=== PATIENT | male | born 1985 | race Caucasian/White ===

== ENCOUNTER 2016-12-25 14:59 | Emergency (ER) | payer SELFPAY ==
[~2016-12-25] VITALS: Ht 175.3 cm; Wt 88.5 kg
[2016-12-25 15:03] VITALS: BP 148/95
--- NOTE | 2016-12-25 15:10 | NUR ---
31/M BIB FAMILY C/O SEVERE LOWER BACK PAIN S/P LIFTING 70LBS BOX WITHOUT BENDING AT THE KNEES TODAY.AMBULATORY WITH A SLOW GUARDED GAIT. DENIES N/V/D; SKIN IS PINK/WARM/DRY; AAOX4 . LUNGS CLEAR BL; HR EVEN AND REGULAR; PT DENIES ANY FEVER, CP, SOB, OR COUGH AT THIS TIME; PATIENT STATES PAIN OF 0/10 AT THIS TIME; PATIENT POSITIONED FOR COMFORT; HOB ELEVATED; BEDRAILS UP X2; BED DOWN. ER MD MADE AWARE OF PT STATUS.
--- NOTE | 2016-12-25 15:21 | NUR ---
NICOLAS DOMINGUEZ EVALUATING PT AT BEDSIDE.
[2016-12-25] MEDS ORDERED: KETOROLAC 30 MG/ML VIAL IM ONE (15:35)
[2016-12-25] MEDS ORDERED: CYCLOBENZAPRINE 10 MG TAB PO ONE (15:35)
--- NOTE | 2016-12-25 15:52 | NUR ---
ADMINISTERED MEDS ORDER.
--- NOTE | 2016-12-25 16:00 | NUR ---
Patient appears to be resting comfortably in bed. Vital Signs within normal limits. Respirations even and unlabored.WILL CONTINUE TO MONITOR.
--- NOTE | 2016-12-25 16:21 | NUR ---
NICOLAS DOMINGUEZ REEVALUATING PT AT BEDSIDE. Addendum: 12/25/16 at 1623 by [email or web address] PT TST BACK PAIN 11/11 AT THIS TIME.
--- NOTE | 2016-12-25 16:40 | NUR ---
pt tsts pain 08/11
[2016-12-25 16:42] VITALS: BP 149/90
--- NOTE | 2016-12-25 16:42 | NUR ---
Patient discharged with v/s stable. Written and verbal after care instructions given and explained. Patient alert, oriented and verbalized understanding of instructions. Ambulatory with steady gait. All questions addressed prior to discharge. ID band removed. Patient advised to follow up with PMD. Rx of FLEXERIL & MOTRIN given. Patient educated on indication of medication including possible reaction and side effects. Opportunity to ask questions provided and answered.
== END 2016-12-25 16:42 | disposition home or self-care (01) ==
LOC: MED 14:59
DX: M54.5 Low back pain (principal); F10.99 Alcohol use, unspecified with unspecified alcohol-induced disorder
CPT/HCPCS: 96372; 99283; J1885

== ENCOUNTER 2018-08-05 16:02 | Inpatient (IN) | payer MEDICAID ==
[~2018-08-05] VITALS: Ht 175.3 cm; Wt 90.3 kg
[2018-08-05 16:14] VITALS: BP 128/100
[2018-08-05] MEDS ORDERED: NACL 0.9% 1,000 ML IV SCH (17:31)
[2018-08-05] MEDS ORDERED: NACL 0.9% 1,000 ML IV ONE (17:31)
--- NOTE | 2018-08-05 17:34 | NUR ---
PATIENT PRESENTS TO ED WITH c/o sharp burning epigastric pain x this am with severe nausea---x1 episode of loose stool denies emesis thus far--- . DENIES N/V/D; SKIN IS PINK/WARM/DRY; AAOX4 WITH EVEN AND STEADY GAIT; LUNGS CLEAR BL; HR EVEN AND REGULAR; PT DENIES ANY FEVER, CP, SOB, OR COUGH AT THIS TIME; PATIENT STATES PAIN OF 8/10 AT THIS TIME; VSS; PATIENT POSITIONED FOR COMFORT; HOB ELEVATED; BEDRAILS UP X2; BED DOWN. ER MD MADE AWARE OF PT STATUS.
[2018-08-05] MEDS ORDERED: KETOROLAC 30 MG/ML VIAL IVP ONE (17:35)
[2018-08-05] MEDS ORDERED: PROMETHAZINE 25 MG/ML VIAL IM ONE (17:35)
[2018-08-05] MEDS ORDERED: diphenhydrAMINE 50 MG/ML VIAL IVP ONE (17:35)
[2018-08-05] MEDS ORDERED: HALOPERIDOL IM 5 MG/ML VIAL IM ONE (17:35)
--- NOTE | 2018-08-05 18:12 | NUR ---
PT TO CT VIA [facility]
[2018-08-05 18:14] LABS: BASOPHILS # (AUTO) 0.1 K/uL (0.00-0.22); BASOPHILS % (AUTO) 0.4 % (0.0-2.0); HEMATOCRIT 44.3 % (36-52); HEMOGLOBIN 15.5 g/dL (12.0-18.0); LYMPHOCYTES # (AUTO) 0.8 K/uL (2.0-11.5); LYMPHOCYTES % (AUTO) 4.9 % (20.5-51.1); MEAN CORPUSCULAR HEMOGLOBIN 32 pg (27-31); MEAN CORPUSCULAR HGB CONC 35 g/dL (33-37); MONOCYTES # (AUTO) 0.5 K/uL (0.8-1.0); MONOCYTES % (AUTO) 3.2 % (1.7-9.3); NEUTROPHILS # (AUTO) 14.5 K/uL (1.8-7.7); NEUTROPHILS % (AUTO) 91.5 % (42.2-75.2); PLATELET COUNT (AUTO) 295 K/uL (140-450); RED BLOOD CELL COUNT(AUTO) 4.81 MIL/uL (4.20-6.10); RED CELL DISTRIBUTION WIDTH 12.7 % (11.6-13.7); WHITE BLOOD COUNT (AUTO) 15.9 K/uL (4.8-10.8)
--- NOTE | 2018-08-05 18:14 | NUR ---
MEDICATED FOR EPIGASTRIC PAIN AND SEVERE NAUSEA----PT ADMITS TO HAS BEEN DRINKING BEERS >20 LAST NIGHT--- WILL CONTINUE TO OBSERVE FOR PAIN CONTROL
[2018-08-05 18:29] LABS: ANION GAP 16.4 (8-16); CARBON DIOXIDE 23.3 mmol/L (21-32); CHLORIDE 98 mmol/L (98-107); CREATININE 0.8 mg/dL (0.7-1.3); GFR ARICAN-AMERICAN 145 mL/min (>90); GLUCOSE 119 mg/dL (74-106); POTASSIUM 3.7 mmol/L (3.5-5.1); SODIUM SERUM 134 mmol/L (136-145); UREA NITROGEN, BLOOD 7 mg/dL (7-18)
--- NOTE | 2018-08-05 18:30 | NUR ---
RETURNED FROM CT VIA [facility]
[2018-08-05 18:35] LABS: ALBUMIN 4.3 g/dL (3.4-5.0); AMYLASE 34 U/L (25-115); ASPARTATE AMINOTRANSFERASE 87 U/L (15-37); LIPASE 81 U/L (73-393); TOTAL BILIRUBIN 1.3 mg/dL (0.0-1.0)
[2018-08-05] MEDS ORDERED: PIPERACILLIN/TAZOBACTAM 3.375 GM in DEXTROSE 5% 50 ML IV ONE (18:45)
[2018-08-05] MEDS ORDERED: metroNIDAZOLE 500 MG/NS PREMIX 100 ML IV ONE (18:45)
[2018-08-05 19:04] LABS: APPEARANCE,URINE CLEAR (CLEAR); BILIRUBIN,URINE NEGATIVE (NEGATIVE); BLOOD, URINE NEGATIVE (NEGATIVE); COLOR,URINE YELLOW (YELLOW); LEUKOCYTE ESTERASE ,URINE NEGATIVE (NEGATIVE); NITRITE, URINE NEGATIVE (NEGATIVE); PH,URINE >=9.0 (5.0-9.0); UGLUCOSE NEGATIVE (NEGATIVE)
--- NOTE | 2018-08-05 19:05 | NUR ---
REPORT RECEIVED FROM SANDOR, RN
[2018-08-05 19:12] LABS: BARBITURATE, URINE NEG. ng/ml (NEG <=200); BENZODIAZEPINE, URINE NEG. ng/mL (NEG <=200); CANNABINOID, URINE POS. ng/mL (NEG <=50); COCAINE, URINE NEG. ng/mL (NEG <=300); OPIATE, URINE NEG. ng/mL (NEG <=2000); PHENCYCLIDINE SCREEN,URINE NEG. ng/mL (NEG <=25)
[2018-08-05] MEDS ORDERED: ONDANSETRON 4 MG/2 ML VIAL IM/IVP PRN (19:20)
[2018-08-05] MEDS ORDERED: DOCUSATE SODIUM 100 MG GELCAP PO PRN (19:20)
[2018-08-05] MEDS ORDERED: ACETAMINOPHEN 325 MG TAB PO PRN (19:20)
[2018-08-05] MEDS ORDERED: HYDROcodone/APAP 7.5/325 MG 1 TAB PO PRN (19:20)
--- NOTE | 2018-08-05 19:30 | NUR ---
Alexandra alvarez in [facility] - 08/05/18 at 1932 by AUDRA PT RETURN FROM CT TO LOBBY
[2018-08-05] MEDS ORDERED: PIPERACILLIN/TAZOBACTAM 3.375 GM VIAL IV ONE (19:38)
[2018-08-05 19:46] LABS: PROTHROMBIN TIME 9.9 secs (10.8-13.4)
[2018-08-05 19:54] LABS: MAGNESIUM 1.4 mg/dL (1.8-2.4); PHOSPHORUS 1.9 mg/dL (2.5-4.9); THYROID STIMULATING HORMONE 1.1 uIU/mL (0.34-3.74)
--- NOTE | 2018-08-05 20:10 | NUR ---
ADMITTED A 33 Y/O MALE FROM WITH CHIEF COMPLAINT OF ABDOMINAL PAIN VIA GURNEY. PATIENT ABLE TO TRANSFERRED TO BED BY HIMSELF. PATIENT AA0X4, AMBULATORY, COOPERATIVE. RESPIRATION EVEN AND UNLABORED.DENIES PAIN AT THIS TIME. MRSA NASAL SWAB DONE. SKIN INTACT. ROUTINE ADMISSION CARE DONE AND CARRY OUT ORDERS.EXPLAINED PLAN OF CARE AND VERBALIZED UNDERSTANDING.NO PERSONAL BELONGINGS AT BEDSIDE, FAMILY MEMBERS TAKE HOME ALL PT. BELONGINGS. BED IN ,LOW LOCK POSITION. CALL LIGHT WITHIN REACH. EXPLAINED TO PATIENT TO USE CALL LIGHTS FOR ASSISTANCE. ALL NEEDS ATTENDED. WILL CONTINUE TO MONITOR.
--- NOTE | 2018-08-05 20:19 | NUR ---
Patient will be admitted to care of DR WILLAMS. Admited to MED/SURG. Will go to [id number]. Belongings list completed. Report to SOFIYA ROMERO.
[2018-08-05] MEDS: NACL 0.9% 1,000 ML IV SCH (20:38)
[2018-08-05] MEDS ORDERED: SODIUM PHOS / POTASSIUM PHOS 1 PKT PDR PO SCH (21:00)
[2018-08-05] MEDS ORDERED: PIPER/TAZO 3.375GM/D5W PREMIX 50 ML IV SCH (21:00)
[2018-08-05] MEDS ORDERED: MULTIVITAMIN-12 10 ML VIAL IV ONE ×2 (21:03→21:06)
[2018-08-05] MEDS ORDERED: FOLIC ACID 5 MG/ML SYR ONE (21:03)
[2018-08-05] MEDS ORDERED: MAG SULF 2000 MG/WATER PREMIX 50 ML IV ONE ×2 (22:00→23:00)
[2018-08-05] MEDS ORDERED: MULTIVITAMIN-12 10 ML, THIAMINE 100 MG, FOLIC ACID 1 MG in NACL 0.9% 1,000 ML IV ONE (22:00)
[2018-08-06] VITALS (10 sets, daily range): BP systolic 112–134; BP diastolic 59–85
--- NOTE | 2018-08-06 | NUR ---
V/S TAKEN AND RECORDED. SEEN PATIENT BACK TO SLEEP. DENIES PAIN .NO S/S OF DISTRESS NOTED AT THIS TIME. ALL NEEDS ATTENDED. WILL CONTINUE TO MONITOR.
--- NOTE | 2018-08-06 02:00 | NUR ---
SEEN PATIENT ASLEEP BUT EASILY AROUSABLE. DENIES PAIN. BED IN LOW LOCKED POSITION. ALL NEEDS ATTENDED.
--- NOTE | 2018-08-06 04:30 | NUR ---
V/S TAKEN AND RECORDED. SCHEDULE MEDICATION GIVEN. DENIES PAIN. NO S/S OF DISTRESS NOTED. WILL CONTINUE TO MONITOR.
[2018-08-06] MEDS ORDERED: PIPERACILLIN/TAZOBACTAM 2.25 GM VIAL IV ONE (04:32)
[2018-08-06] MEDS: PIPER/TAZO 3.375GM/D5W PREMIX 50 ML IV SCH ×3 (04:32→20:11)
[2018-08-06] MEDS ORDERED: PIPERACILLIN/TAZOBACTAM 3.375 GM VIAL IV ONE (04:33)
[2018-08-06] MEDS: NACL 0.9% 1,000 ML IV SCH ×2 (04:34→20:11)
--- NOTE | 2018-08-06 07:05 | NUR ---
ENDORSEMENT GIVEN TO AM SHIFT NURSE AT BEDSIDE. CALL LIGHT WITHIN REACH. DENIES PAIN. BED IN LOW LOCKED POSITION. EXPLAINED PLAN OF CARE. ALL NEEDS ATTENDED.PATIENT IN STABLE CONDITION.
--- NOTE | 2018-08-06 07:06 | NUR ---
RECEIVED BEDSIDE REPORT FROM SOFIYA ROMERO. PATIENT AAOX4. PATIENT ON ROOM AIR NO DISTRESS NOTED. SKIN INTACT, ABLE TO AMBULATE AND CONTINENT. IV ON L AC 20 G INFUSING NS AT 100. IV ASYMPTOMATIC PATENT AND INTACT. ON MED SURGE AND STANDARD PRECAUTIONS IN PLACE. BED IN LOW POSITION, CALL LIGHT WIHTIN REACH, SIDE RAILS X2 UP. WILL CONTINUE TO MONITOR.
[2018-08-06 07:22] LABS: BASOPHILS % (AUTO) 0.2 % (0.0-2.0); EOSINOPHILS % (AUTO) 0.5 % (0.0-4.0); HEMATOCRIT 44.5 % (36-52); LYMPHOCYTES # (AUTO) 1.7 K/uL (2.0-11.5); LYMPHOCYTES % (AUTO) 15.6 % (20.5-51.1); MEAN CORPUSCULAR HEMOGLOBIN 32 pg (27-31); MEAN CORPUSCULAR HGB CONC 34 g/dL (33-37); MEAN CORPUSCULAR VOLUME 95.6 fL (80-94); MONOCYTES # (AUTO) 0.7 K/uL (0.8-1.0); MONOCYTES % (AUTO) 6.6 % (1.7-9.3); NEUTROPHILS # (AUTO) 8.2 K/uL (1.8-7.7); NEUTROPHILS % (AUTO) 77.1 % (42.2-75.2); PLATELET COUNT (AUTO) 269 K/uL (140-450); RED BLOOD CELL COUNT(AUTO) 4.66 MIL/uL (4.20-6.10); RED CELL DISTRIBUTION WIDTH 12.8 % (11.6-13.7); WHITE BLOOD COUNT (AUTO) 10.7 K/uL (4.8-10.8)
[2018-08-06 07:26] LABS: ANION GAP 11.3 (8-16); CARBON DIOXIDE 27.8 mmol/L (21-32); CREATININE 0.8 mg/dL (0.7-1.3); POTASSIUM 4.1 mmol/L (3.5-5.1)
[2018-08-06 07:34] LABS: MAGNESIUM 2.1 mg/dL (1.8-2.4); PHOSPHORUS 3.4 mg/dL (2.5-4.9)
[2018-08-06] MEDS ORDERED: MULTIVITAMIN-12 10 ML, THIAMINE 100 MG, MAGNESIUM SULFATE 50% 2,000 MG, FOLIC ACID 1 MG... IV SCH ×5 (08:00)
--- NOTE | 2018-08-06 08:03 | NUR ---
PATIENT HAS BEEN SCREENED AND CATEGORIZED HIGH NUTRITION RISK. PATIENT WILL BE SEEN WITHIN 1-2 DAYS OF ADMISSION. 08/06/18-08/07/[address]
[2018-08-06 08:11] LABS: CHOL/HDL RATIO 3.2 (1-4.5)
--- NOTE | 2018-08-06 08:30 | NUR ---
PATIENT PICKED UP BY [facility] FOR SURGERY. PATIENT IN STABLE CONDITION.
[2018-08-06] MEDS ORDERED: ROCURONIUM 50 MG/5 ML VIAL IV ONE (08:55)
[2018-08-06] MEDS ORDERED: SUCCINYLCHOLINE CHLORIDE 200 MG/10 ML VIAL IVP ONE (08:55)
[2018-08-06] MEDS ORDERED: GLYCOPYRROLATE 0.2 MG/ML VIAL ONE (08:55)
[2018-08-06] MEDS ORDERED: ONDANSETRON 4 MG/2 ML VIAL ONE (08:55)
[2018-08-06] MEDS ORDERED: PHENYLEPHRINE 10 MG/ML VIAL ONE (08:55)
[2018-08-06] MEDS ORDERED: KETOROLAC 30 MG/ML VIAL ONE (08:55)
[2018-08-06] MEDS ORDERED: PROPOFOL 200 MG/20 ML VIAL IV ONE (08:55)
[2018-08-06] MEDS ORDERED: SEVOFLURANE 250 ML BTL INH ONE (08:55)
[2018-08-06] MEDS ORDERED: DEXAMETHASONE 4 MG/ML VIAL ONE (08:55)
[2018-08-06] MEDS: BUPIVACAINE-MPF/EPI 0.5% 30 ML VIAL INJ ONE ×2 (08:57→10:10)
[2018-08-06] MEDS: LACTOBACILLUS RHAMNOSUS GG 1 EACH CAP PO SCH (09:00)
[2018-08-06] MEDS: chlordiazePOXIDE 25 MG CAP PO SCH ×3 (09:00→17:43)
[2018-08-06] MEDS ORDERED: fentaNYL 0.05 MG/ML VIAL ONE (09:05)
[2018-08-06] MEDS ORDERED: MIDAZOLAM 2 MG/2 ML VIAL ONE (09:05)
[2018-08-06] MEDS ORDERED: MEPERIDINE 50 MG/ML SYR ONE (09:06)
[2018-08-06] MEDS ORDERED: LACTATED RINGERS 1,000 ML IV SCH (09:47)
[2018-08-06] MEDS ORDERED: ONDANSETRON 4 MG/2 ML VIAL IVP PRN (09:50)
[2018-08-06] MEDS ORDERED: MEPERIDINE 25 MG/ML SYR IVP PRN (09:50)
[2018-08-06] MEDS ORDERED: HYDROmorphone 1 MG/ML AMP IVP PRN (09:50)
[2018-08-06] MEDS ORDERED: diphenhydrAMINE 50 MG/ML VIAL IVP PRN (09:50)
--- NOTE | 2018-08-06 11:20 | NUR ---
PATIENT BACK FROM SURGERY. FAMILY AT BEDSIDE. PATIENT IN STABLE CONDITION. VITALS: BP 131/74, O2 SAT 99% ON RA, HR 76, RR 16, T 97.7. WILL CONTINUE TO MONITOR.
--- NOTE | 2018-08-06 13:00 | NUR ---
PATIENT WATCHING TV. ON ROOM AIR, NO DISTRESS NOTED. WILL CONTINUE TO MONITOR.
--- NOTE | 2018-08-06 15:27 | NUR ---
FAMILY AT BEDSIDE. PATIENT ON ROOM AIR, NO DISTRESS NOTED. WILL CONTINUE TO MONITOR.
--- NOTE | 2018-08-06 18:40 | NUR ---
PATIENT ATE ALL OF HIS DINNER. AT BEDSIDE. ON ROOM AIR, NO DISTRESS NOTED. WILL CONTINUE TO MONITOR.
--- NOTE | 2018-08-06 19:05 | NUR ---
GAVE REPORT TO SOFIYA EPPS. PATIENT ENDORSED IN STABLE CONDITION.
--- NOTE | 2018-08-06 19:30 | NUR ---
ASSUMED CARE OF PATIENT, AWAKE, ALERT AND ORIENTED. FAMILY MEMBER AT BEDSIDE. CARE BOARD UPDATED. PLAN OF CARE DISCUSSED WITH PATIENT AND FAMILY MEMBER, VERBALIZED UNDERSTANDING WELL. NO COMPLAINS. PASS GAS ALREADY. CALL LIGHT WITHIN REACH.
--- NOTE | 2018-08-06 21:04 | NUR ---
DUE MEDS GIVEN. VOIDING WELL. PASS GAS ALREADY. CALL LIGHT WITHIN REACH.
--- NOTE | 2018-08-06 23:41 | NUR ---
ASLEEP NO COMPLAINS. VITAL SIGNS STABLE. NO COMPLAINS. CALL LIGHT WITHIN REACH. AFEBRILE.
[2018-08-07] MEDS: PIPER/TAZO 3.375GM/D5W PREMIX 50 ML IV SCH (04:18)
--- NOTE | 2018-08-07 04:25 | NUR ---
ASLEEP. NO COMPLAINS. CALL LIGHT WITHIN REACH.
[2018-08-07 06:09] LABS: BASOPHILS % (AUTO) 0.2 % (0.0-2.0); EOSINOPHILS % (AUTO) 0.5 % (0.0-4.0); HEMATOCRIT 43.4 % (36-52); HEMOGLOBIN 14.8 g/dL (12.0-18.0); LYMPHOCYTES # (AUTO) 1.9 K/uL (2.0-11.5); LYMPHOCYTES % (AUTO) 20.3 % (20.5-51.1); MEAN CORPUSCULAR HEMOGLOBIN 33 pg (27-31); MEAN CORPUSCULAR HGB CONC 34 g/dL (33-37); MONOCYTES # (AUTO) 0.5 K/uL (0.8-1.0); MONOCYTES % (AUTO) 5.2 % (1.7-9.3); NEUTROPHILS # (AUTO) 6.8 K/uL (1.8-7.7); NEUTROPHILS % (AUTO) 73.8 % (42.2-75.2); PLATELET COUNT (AUTO) 275 K/uL (140-450); RED BLOOD CELL COUNT(AUTO) 4.52 MIL/uL (4.20-6.10); RED CELL DISTRIBUTION WIDTH 12.6 % (11.6-13.7); WHITE BLOOD COUNT (AUTO) 9.3 K/uL (4.8-10.8)
[2018-08-07 06:29] LABS: ANION GAP 12.1 (8-16); CARBON DIOXIDE 26.5 mmol/L (21-32); CREATININE 0.8 mg/dL (0.7-1.3); POTASSIUM 3.6 mmol/L (3.5-5.1)
--- NOTE | 2018-08-07 07:15 | NUR ---
RECEIVED PT REPORT FROM TUMBLER TENDER NURSE. PT IS ALERT AND AWAKE IN BED, NO S/S OF ACUTE DISTRESS OR SOB. NO C/O PAIN. PT ON ROOM AIR, SKIN INTACT ASIDE FROM 3 ABD SURGICAL INCISIONS FROM LAP APPENDECTOMY, COVERED BY BANDAGES, DRY AND INTACT. IV SITE NOTED ON THE LAC, 20 G, SALINE LOCK. PT IS AMBULATORY. CALL LIGHT WITHIN REACH, WILL CONTINUE TO MONITOR.
--- NOTE | 2018-08-07 07:30 | NUR ---
ENDORSED CARE AT BEDSIDE WITH KRISTINE RN, PATIENT IN STABLE CONDITION.
[2018-08-07 08:00] VITALS: BP 139/92
[2018-08-07] MEDS ORDERED: DOCU-299 PO (08:20)
[2018-08-07] MEDS ORDERED: HYDR-5123 PO (08:20)
[2018-08-07] MEDS ORDERED: ACET-1182 PO (08:21)
[2018-08-07] MEDS ORDERED: DOCUSATE SODIUM 100 MG GELCAP PO SCH (09:00)
[2018-08-07] MEDS: chlordiazePOXIDE 25 MG CAP PO SCH (09:59)
[2018-08-07] MEDS: LACTOBACILLUS RHAMNOSUS GG 1 EACH CAP PO SCH (09:59)
--- NOTE | 2018-08-07 13:00 | NUR ---
PT HAS DISCHARGED. DC INSTRUCTIONS AND PRESCRIPTION GIVEN. PT VERBALIZED UNDERSTANDING OF DISCHARGE TEACHING. DC DOCUMENTS SIGNED. IV SITE AND WRIST BAND REMOVED. PT LEFT WITH ALL HIS BELONGINGS IN STABLE CONDITION, WITH A RELATIVE.
== END 2018-08-07 13:00 | disposition home or self-care (01) | DRG 710 ==
LOC: MED 16:02 → MTU 19:20
PROVIDERS: ADMIT General Practice; ATTEND General Practice
PROC: 0DTJ4ZZ Resection of Appendix, Percutaneous Endoscopic Approach (ICD-10-PCS; principal; 2018-08-05)
DX: A41.9 Sepsis, unspecified organism (principal); E83.39 Other disorders of phosphorus metabolism; K76.0 Fatty (change of) liver, not elsewhere classified; E83.42 Hypomagnesemia; E87.1 Hypo-osmolality and hyponatremia; E66.3 Overweight; Z68.29 Body mass index [BMI] 29.0-29.9, adult; Z71.3 Dietary counseling and surveillance; F12.10 Cannabis abuse, uncomplicated; F10.99 Alcohol use, unspecified with unspecified alcohol-induced disorder; K35.890 Other acute appendicitis without perforation or gangrene
CPT/HCPCS: 36415; 71045; 80048; 80053; 80305; 81003; 82150; 82374; 82550; 83036; 83605; 83690; 83735; 83880; 84100; 84443; 84484; 85025; 85610; 85730; 87040; 87081; 87086; 88304; 93005; 96372; 96374; 96375; 99285; A9153; G0482; J0330; J1100; J1200; J1630; J1885; J2175; J2250; J2370; J2405; J2543; J2550; J2704; J3010; J3411; J3475; J3490; J7030; J7060; J7120; Q0092